=== PATIENT | female | born 1985 | race African-American/Black ===

== ENCOUNTER 2017-04-05 09:27 | Emergency (ER) | payer OTHER ==
[~2017-04-05] VITALS: Ht 165.1 cm; Wt 87.1 kg
[~2017-04-05 09:27] MED LIST: ACCUNEB SO1.25 MG/1 INH; ACETAMINOPHEN-1 EAC1 PO; ADIPEX-P37.5 MG PO; AFRIN15 ML NS; ANTIVERT25 M1 PO; AUGMENTIN 875875 MG PO; AZITHROMYCIN 2250 MG PO; CLARINEX-D 241 EACH PO; CLARITIN10 MG PO; CLEOCIN HCL150 MG PO; CODEINE-GUAIFE473 M1 PO; DOXYCYCLINE 10100 MG PO; FLONASE 0.05%50 MCG NASAL; FLONASE16 GM; HYDROCODONE-AC120 ML PO; IBUPROFEN 600600 M1 PO; IRON325 PO; MOBIC15 MG PO; MULTIVITAMINS; NAPROSYN500 MG PO; NORCO 5-325 TA1 EACH PO; PREDNISONE 20 M20 MG PO; PREDNISONE50 MG PO; PRENATAL; PRENATAL COMPL1 EACH PO; PROAIR HFA8.5 GM IH; VALIUM5 MG PO; VENTOLIN HFA 1818 GM INH; VICODIN 5-5001 EACH PO; XOPENEX HF1 UDINHALE IH; ZOFRAN ODT4 MG PO; ZPAK PO; ZYRTEC10 M2 PO
[2017-04-05] MEDS ORDERED: LASIX 20 MG TAB20 MG PO (09:35)
[2017-04-05 10:51] VITALS: BP 94/64
== END 2017-04-05 10:53 | disposition home or self-care (01) ==
LOC: ER 09:27
DX: M79.605 Pain in left leg (principal); Z98.890 Other specified postprocedural states; Z88.1 Allergy status to other antibiotic agents

== ENCOUNTER 2017-11-17 08:42 | Emergency (ER) | payer OTHER ==
[~2017-11-17] VITALS: Ht 162.6 cm; Wt 90.7 kg
[~2017-11-17 08:42] MED LIST changes: +LASIX 20 MG TAB20 MG PO
[2017-11-17] MEDS ORDERED: AZITHROMYCIN 2250 MG PO (10:06)
[2018-06-20] MEDS ORDERED: DOXYCYCLINE 10100 MG PO (09:13)
[2018-06-20] MEDS ORDERED: NORCO 5-325 TA1 EACH PO (09:27)
[2018-06-20] MEDS ORDERED: BACTRIM DS TAB1 EACH PO (09:27)
== END 2017-11-17 10:10 | disposition home or self-care (01) ==
LOC: ER 08:42
DX: O26.892 Other specified pregnancy related conditions, second trimester (principal); J02.9 Acute pharyngitis, unspecified; Z88.1 Allergy status to other antibiotic agents; Z3A.20 20 weeks gestation of pregnancy

== ENCOUNTER 2018-02-11 23:15 | Emergency (ER) | payer OTHER ==
[~2018-02-11] VITALS: Ht 165.1 cm; Wt 95.3 kg
[2018-02-11] MEDS ORDERED: PROVENTIL HFA6.7 G1 INH (23:25)
[2018-02-11] MEDS ORDERED: PREDNISONE 20 M20 MG PO (23:25)
[2018-02-11] MEDS ORDERED: VITAFOL-OB+DHA1 EACH PO (23:34)
[2018-02-12 00:21] VITALS: BP 102/57
== END 2018-02-12 00:22 | disposition home or self-care (01) ==
LOC: ER 23:15
DX: J06.9 Acute upper respiratory infection, unspecified (principal); J98.01 Acute bronchospasm; Z88.1 Allergy status to other antibiotic agents

== ENCOUNTER 2018-08-29 12:26 | Emergency (ER) | payer OTHER ==
[~2018-08-29] VITALS: Ht 165.1 cm; Wt 86.2 kg
[~2018-08-29 12:26] MED LIST changes: +BACTRIM DS TAB1 EACH PO; +PROVENTIL HFA6.7 G1 INH; +VITAFOL-OB+DHA1 EACH PO
[2018-08-29 12:47] LABS: URINE BILIRUBIN NEGATIVE (Negative); URINE BLOOD NEGATIVE (Negative); URINE CLARITY CLEAR; URINE COLOR YELLOW; URINE GLUCOSE-RANDOM* NEGATIVE (Negative); URINE KETONES NEGATIVE (Negative); URINE LEUKOCYTES-REFLEX NEGATIVE (Negative); URINE NITRITE-REFLEX NEGATIVE (Negative); URINE PROTEIN (DIPSTICK) NEGATIVE (Negative); URINE SPECIFIC GRAVITY >= 1.030 (1.005-1.035); URINE UROBILINOGEN 0.2 E.U./dl (0.2-1.0)
== END 2018-08-29 15:20 | disposition home or self-care (01) ==
LOC: ER 12:26
PROVIDERS: Emergency Medicine
DX: R42 Dizziness and giddiness (principal); M54.5 Low back pain; Z88.1 Allergy status to other antibiotic agents; Z98.890 Other specified postprocedural states

== ENCOUNTER 2018-10-04 10:04 | Emergency (ER) | payer OTHER ==
[~2018-10-04] VITALS: Ht 165.1 cm; Wt 90.7 kg
--- NOTE | ~2018-10-04 | EKG ---
[address] [address] ELECTROCARDIOGRAM REPORT Name: DARNELL MARTIN BRAVO Room #: [facility]P [facility]#: [id number] Admission: 10/04/18 Attend Phys: Discharge: 10/04/18 Date of : 81 Report #: [id number] THIS REPORT FOR: //name// [facility] ED Test Date: 2018-10-04 Test Time: 10:28:22 Pat Name: DARNELL MARTIN Department: Room: Gender: F Sisal Picker: macrina : 1985 Requested By: Vickie Castrejon Order Number: [id number] MD: Inocencio Anaya Measurements Intervals [place] Rate: 74 P: 46 DE: 163 QRS: 53 QRSD: 103 T: 50 QT: 393 QTc: 436 Interpretive Statements Sinus rhythm Borderline T wave abnormalities Compared to ECG 01/03/2017 14:52:07 Sinus arrhythmia no longer present T-wave abnormality still present Electronically Signed On 10-04-2018 13:18:16 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
[2018-10-04 10:46] LABS: BASOPHILS 1.1 % (0.0-2.0); EOSINOPHILS 3.4 % (0.0-3.0); HEMATOCRIT 34.9 % (37.0-47.0); HEMOGLOBIN 11.3 gm/dL (12.0-15.0); LYMPHOCYTES 30.9 % (24.0-44.0); MCH 26.2 pg (26.0-34.0); MCHC 32.2 g/dL (28.0-37.0); MCV 81.4 fL (80.0-100.0); MONOCYTES 9.1 % (1.0-8.0); PLATELET COUNT 240 thou/uL (150-400); POLYS 55.5 % (36.0-66.0); RBC 4.29 mil/uL (4.20-5.00); WBC 8.9 thou/uL (4.0-11.0)
[2018-10-04 11:02] LABS: ANION GAP 6 mmol/L (7-16); BUN 12 mg/dL (7-18); CALCIUM 9.1 mg/dL (8.5-10.1); CHLORIDE 105 mmol/L (98-107); CO2 26 mmol/L (21-32); CREATININE 0.7 mg/dL (0.6-1.0); GLUCOSE 77 mg/dL (74-106); POTASSIUM 3.6 mmol/L (3.5-5.1); SODIUM 137 mmol/L (136-145); TROPONIN-I <0.06 ng/mL (<0.06)
[2018-10-04] MEDS ORDERED: NOHOMEMEDICATIONS (11:05)
[2018-10-04] MEDS ORDERED: VITAFOL-OB+DHA1 EACH PO (11:10)
[2018-10-04 11:18] VITALS: BP 102/64
== END 2018-10-04 11:19 | disposition home or self-care (01) ==
LOC: ER 10:04
PROVIDERS: Physician Assistant
DX: O26.891 Other specified pregnancy related conditions, first trimester (principal); R07.89 Other chest pain; Z88.1 Allergy status to other antibiotic agents; Z98.890 Other specified postprocedural states; Z3A.00 Weeks of gestation of pregnancy not specified

== ENCOUNTER 2021-10-21 09:51 | Emergency (ER) | payer OTHER ==
[~2021-10-21] VITALS: Ht 165.1 cm; Wt 104.3 kg
[~2021-10-21 09:51] MED LIST changes: +NOHOMEMEDICATIONS
[2021-10-21 10:14] VITALS: BP 104/69
[2021-10-21 10:26] LABS: BASOPHILS 1.2 % (0.0-2.0); EOSINOPHILS 3.5 % (0.0-3.0); HEMATOCRIT 36.6 % (37.0-47.0); HEMOGLOBIN 11.8 gm/dL (12.0-15.0); LYMPHOCYTES 37.5 % (24.0-44.0); MCH 25.6 pg (26.0-34.0); MCHC 32.1 g/dL (28.0-37.0); MCV 79.8 fL (80.0-100.0); MONOCYTES 5.9 % (1.0-8.0); PLATELET COUNT 283 thou/uL (150-400); POLYS 51.9 % (36.0-66.0); WBC 7.7 thou/uL (4.0-11.0)
[2021-10-21 10:26] LABS: URINE BILIRUBIN NEGATIVE (Negative); URINE BLOOD TRACE (Negative); URINE CLARITY CLEAR; URINE COLOR YELLOW; URINE GLUCOSE-RANDOM* NEGATIVE (Negative); URINE KETONES NEGATIVE (Negative); URINE LEUKOCYTES-REFLEX NEGATIVE (Negative); URINE NITRITE-REFLEX NEGATIVE (Negative); URINE PROTEIN (DIPSTICK) NEGATIVE (Negative); URINE SPECIFIC GRAVITY 1.025 (1.005-1.035); URINE UROBILINOGEN 0.2 E.U./dl (0.2-1.0)
[2021-10-21 10:33] LABS: ANION GAP 10 mmol/L (7-16); BUN 10 mg/dL (7-18); CHLORIDE 105 mmol/L (98-107); CO2 25 mmol/L (21-32); CREATININE 0.7 mg/dL (0.6-1.0); GLUCOSE 95 mg/dL (74-106); POTASSIUM 3.9 mmol/L (3.5-5.1); SODIUM 140 mmol/L (136-145)
[2021-10-21 10:43] LABS: ALBUMIN 3.3 g/dL (3.4-5.0); SGOT 15 U/L (15-37); SGPT 26 U/L (14-59); TOTAL BILIRUBIN 0.4 mg/dL (0.2-1.0); TOTAL PROTEIN 7.6 g/dL (6.4-8.2)
--- NOTE | 2021-10-22 11:14 | EKG ---
[address] [place] [address] ELECTROCARDIOGRAM REPORT Name: DARNELL MARTIN Room #: [facility]#: [id number] Admission: 10/21/21 Attend Phys: Discharge: 10/21/21 Date of : 81 Report #: [id number] [facility] ED Test Date: 2021-10-21 Test Time: 09:58:22 Pat Name: DARNELL MARTIN Department: Room: Gender: Triage Registered Nurse: SAUD : 1985 Requested By: Gage Braga Order Number: [id number] MD: Elie Meyers Measurements Intervals [place] Rate: 79 P: 40 KS: 166 QRS: -5 QRSD: 112 T: 39 QT: 403 QTc: 463 Interpretive Statements Sinus rhythm Borderline T wave abnormalities Compared to ECG 10/04/2018 10:28:22 No significant changes Electronically Signed On 10-22-2021 11:14:25 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
== END 2021-10-21 12:50 | disposition home or self-care (01) ==
LOC: ER 09:51
PROVIDERS: Emergency Medicine
DX: R07.89 Other chest pain (principal); Z98.890 Other specified postprocedural states; Z79.899 Other long term (current) drug therapy; Z88.1 Allergy status to other antibiotic agents